=== PATIENT | female | born 1970 | race Caucasian/White ===

== ENCOUNTER 2017-09-04 14:50 | Outpatient (CLI) | payer BC ==
--- NOTE | 2017-09-04 15:51 | ULT ---
THYROID SONOGRAM: HISTORY: Neck mass. Enlarged thyroid gland. FINDINGS: The right thyroid lobe is 3.6 cm and has a heterogeneous echotexture. Tiny cyst centrally is 0.2 cm diameter. The left thyroid lobe is 3.8 cm. Heterogeneous echotexture. Near the inferior pole is an ill-define d oval 0.7 cm heterogeneous very slightly hypoechoic nodule. Isthmus is 0.2 cm. IMPRESSION: Small nonspecific bilateral thyroid nodules. No dominant aggressive process is apparent. POS: [id number]
== END 2017-09-04 14:51 | disposition home or self-care (01) ==
LOC: SCSULT 14:50
PROVIDERS: ATTEND Family Medicine
DX: E04.9 Nontoxic goiter, unspecified (principal); E04.2 Nontoxic multinodular goiter
CPT/HCPCS: 76536

== ENCOUNTER → 2019-12-21 | Day surgery (SDC) | payer BC ==
[~2019-12-21] MED LIST: Heparin 1,000 UNITS/ML VIAL ONE
--- NOTE | 2019-12-21 14:01 | SPC ---
Left upper extremity PICC placement sonographic guided HISTORY: Shoulder infection. FINDINGS: After explaining the procedure and answering all questions, the left upper extremity was pr epped and draped in usual sterile fashion. Sterile technique, buffered local anesthesia, sonographic guidance, and a 22-gauge needle were used t o carefully access the left basilic vein. Standard technique was used to place the tip of a 5 [place] single lumen PICC so that the tip lies at the level of the cavoatrial junction. Catheter was flushed and secured externally. Patient tolerated the procedure well and was dismissed i n good condition. IMPRESSION : Left upper extremity PICC is ready for use.
== END ==
LOC: SPEC 09:45
PROVIDERS: ATTEND Internal Medicine Infectious Disease
PROC: B548ZZA Ultrasonography of Superior Vena Cava, Guidance (ICD-10-PCS; principal; 2019-12-21)
PROC: 02HV33Z Insertion of Infusion Device into Superior Vena Cava, Percutaneous Approach (ICD-10-PCS; principal; 2019-12-21)
DX: M86.21 Subacute osteomyelitis, shoulder (principal)
CPT/HCPCS: 36569; J1644

== ENCOUNTER 2020-10-24 16:21 | Outpatient (CLI) | payer BC | END 2020-10-24 16:22 | disposition home or self-care (01) | LOC: BICRAD 16:21 | PROVIDERS: ATTEND Chiropractor Rehabilitation | DX: S73.112A Iliofemoral ligament sprain of left hip, initial encounter (principal); M16.12 Unilateral primary osteoarthritis, left hip; M47.816 Spondylosis without myelopathy or radiculopathy, lumbar region | CPT/HCPCS: 72100 ==

== ENCOUNTER 2022-04-29 13:20 | Outpatient (CLI) | payer BC | END 2022-04-29 13:21 | disposition home or self-care (01) | LOC: BICRAD 13:20 | PROVIDERS: ATTEND Family Medicine | DX: M19.072 Primary osteoarthritis, left ankle and foot (principal) ==

== ENCOUNTER 2022-06-02 15:02 | Outpatient (CLI) | payer BC | END 2022-06-02 15:03 | disposition home or self-care (01) | LOC: BICRAD 15:02 | PROVIDERS: ATTEND Family Medicine | DX: M54.2 Cervicalgia (principal); M47.812 Spondylosis without myelopathy or radiculopathy, cervical region | CPT/HCPCS: 72040 ==

== ENCOUNTER 2022-06-20 08:08 | Outpatient (CLI) | payer BC | END 2022-06-20 08:09 | disposition home or self-care (01) | LOC: TBSIIMAG 08:08 | PROVIDERS: ATTEND Family Medicine | DX: M47.22 Other spondylosis with radiculopathy, cervical region (principal); M50.11 Cervical disc disorder with radiculopathy, high cervical region | CPT/HCPCS: 72141 ==